=== PATIENT | female | born 1985 | race Hispanic/Latino ===

== ENCOUNTER → 2017-04-22 | Emergency (ER) | payer OTHER ==
[~2017-04-22] VITALS: Ht 160 cm; Wt 78.9 kg
[~2017-04-22] MED LIST: KETOROLAC TROMETHAMINE 60 MG/2 ML VIAL IM ONE
[2017-04-22] MEDS: ONDANSETRON HCL 4 MG ORAL DISINTEGRATING TAB PO ONE ×2 (18:15→20:15)
[2017-04-22 20:01] VITALS: BP 144/66
== END | disposition home or self-care (01) ==
LOC: FSED 16:49
DX: S06.0X0A Concussion without loss of consciousness, initial encounter (principal); R42 Dizziness and giddiness; V43.52XD Car driver injured in collision with other type car in traffic accident, subsequent encounter; J01.00 Acute maxillary sinusitis, unspecified
CPT/HCPCS: 99283; J1885